=== PATIENT | male | born 1950 | race Two or more races ===

== ENCOUNTER → 2025-11-14 | Outpatient (CLI) | payer MEDICARE, MEDICAID, SELFPAY ==
--- NOTE | 2025-11-14 12:50 | XR_ITS ---
Study: Chest 2 view. INDICATION: Chronic cough for 3 months. FINDINGS: PA and lateral upright chest radiographs at 1255 hours 14 November 2025 demonstrate fully expanded lungs free from alveolar infiltrates or nodules. There are no effusions. The heart is normal in size and contour. The aortic arch is calcified. The descending aortic segment is mildly tortuous. Peripheral vascularity is normal in distribution and volume. Superior mediastinal structures are narrow. There is no hilar adenopathy. IMPRESSION: No acute diagnostic abnormality.
--- NOTE | 2025-11-14 13:15 | XR_ITS ---
Study: Chest CT. INDICATION: Cough for 3 months. TECHNIQUE: 3 mm slice thickness without contrast. 3 mm axial and sagittal reformats. 3D surface reconstruction of the bony structures with rotating presentation. Radiation dose 237 mGy centimeters with dose reduction technique. 1423 images at 1400 hours 14 November 2025. FINDINGS: The patient was imaged from the thyroid cartilage to the lung bases. The thyroid is difficult to discern but grossly free from lesions. There is no adenopathy at the thoracic inlet, mediastinum or hilar regions. The aorta and pulmonary outflow tract are normal in caliber. There is calcific plaque at the aortic arch. A saber trachea configuration is noted suggesting hyperexpansion of the chest chronically. The heart is normal in size and contour. There is no pericardial effusion. 2. Discrete plaques are noted in the proximal aspect of the left anterior descending coronary artery. The quality of lung representation is restricted by continuous respiratory artifact. There is no definite alveolar infiltrate. Linear scarring is noted in the cupolas. Mild pleural-based scarring is noted in the posterior aspect of the right upper lobe in image 37 of sequence 201 and the right lateral wall pleura in image 44. A 2 mm noncalcified soft tissue nodule is seen immediately below the pleura in the anterolateral aspect of the right upper lobe in image 67. There is nonlinear, small mass scarring in the medial segment of the middle lobe against the mediastinal pleura and axial slice 158. There may be a calcified 2 mm nodule in the anterior basal segment of the left lower lobe laying near the major fissure and axial slice 98. Much of the left lower lobe and the inferior aspect of the left upper lobe are below sensitive identification for nodules because of respiratory artifact. The pleural spaces are dry. The adrenal glands are normal in appearance. There may be a partially contracted thin-walled gallbladder free from calculi. Incidental note is made of a 10.8 mm proteinaceous or hemorrhagic cyst versus solid mass at the posterolateral cortex of the left kidney midpole. This is best seen in image 158. Impression: 1. Trace left anterior descending coronary artery plaque. 2. Nodules and subpleural scarring which do not appear to represent an active disease process. 3. Hyperexpanded lung disease. 4. Left renal cyst versus solid mass. Consider ultrasound follow-up. 5. Inability to suspend respiration.
== END | disposition home or self-care (01) ==
PROVIDERS: PCP Physician Assistant; Referring Provider Physician Assistant; Visit Provider Physician Assistant
DX: R05.3 Chronic cough (principal); R91.8 Other nonspecific abnormal finding of lung field; I25.10 Atherosclerotic heart disease of native coronary artery without angina pectoris; J98.4 Other disorders of lung
CPT/HCPCS: 71046; 71250